=== PATIENT | male | born 2005 | race Hispanic/Latino ===

== ENCOUNTER 2023-12-01 11:28 | Day surgery (SDC) | payer BC, SELFPAY ==
[2023-12-01] MEDS ORDERED: Ondansetron PF 4 MG/2 ML Vial IVP PRN (14:06)
[2023-12-01] MEDS ORDERED: Dextrose 50% Abboject 50 ML SYRINGE SLOW IVP PRN (14:06)
[2023-12-01] MEDS ORDERED: Dextrose 5% in Water 1,000 ML IV PRN (14:06)
[2023-12-01] MEDS ORDERED: Promethazine HCl 25 MG/ML VIAL IM PRN (14:06)
[2023-12-01] MEDS ORDERED: Glucagon 1 MG/ML KIT IM PRN (14:06)
[2023-12-01] MEDS ORDERED: Lactated Ringer's 1,000 ML IV SCH (14:15)
[2023-12-01] MEDS ORDERED: Piperacillin/Tazobactam 3.375 GM in Sodium Chloride 0.9% 100 ML IVPB SCH ×3 (14:15→23:59)
[2023-12-01] MEDS ORDERED: EPINEPHrine 1 MG/ML VIAL ONE (16:06)
[2023-12-01] MEDS ORDERED: Bupivacaine 0.25% HCL 30 ML VIAL ONE (16:06)
[2023-12-01] MEDS ORDERED: PROPOFOL 40 ML ONE (16:20)
[2023-12-01] MEDS ORDERED: SUCCINYLCHOLINE/SOD CL,ISO/PF 200 MG/10 ML SYRINGE FS ONE (16:20)
[2023-12-01] MEDS ORDERED: Dexmedetomidine 200 MCG/2 ML VIAL ONE (16:20)
[2023-12-01] MEDS ORDERED: Rocuronium Bromide 10 MG/ML (10ML VIAL) ONE (16:20)
[2023-12-01] MEDS ORDERED: fentaNYL 50 mcg/mL 1 mL Vial ONE ×3 (16:20→17:59)
[2023-12-01] MEDS ORDERED: Lidocaine 1% PF 5 ML VIAL ONE (16:20)
[2023-12-01] MEDS ORDERED: SUGAMMADEX SODIUM 200 MG/2 ML VIAL ONE (16:37)
[2023-12-01] MEDS ORDERED: PHENYLEPHRINE-NS 100 MCG/ML 10 ML SYRINGE ONE (17:04)
[2023-12-01] MEDS ORDERED: Dexamethasone 4 mg/ml Vial ONE (17:05)
[2023-12-01] MEDS ORDERED: Ketorolac Tromethamine 30 MG (1 mL) VIAL ONE (17:05)
[2023-12-01] MEDS ORDERED: Ondansetron PF 4 MG/2 ML Vial ONE (17:05)
[2023-12-01] MEDS ORDERED: ePHEDrine Sulfate 50 MG/10 ML VIAL ONE (17:10)
[2023-12-01] MEDS ORDERED: Ketorolac Tromethamine 30 MG (1 mL) VIAL IVP SCH (18:00)
[2023-12-01] MEDS ORDERED: HYDROcodone/Acetaminophen 5/325 mg Tablet PO PRN (18:03)
[2023-12-01] MEDS ORDERED: Famotidine 20 MG TAB PO SCH (21:00)
== END 2023-12-01 19:00 | disposition home or self-care (01) ==
LOC: SDC/OP 11:28 → OBSVTOIN 11:58 → INTOOBSV 11:58 → 2NO 11:58 → UNDOADMOB 11:58 → SDC/OP 19:00
PROVIDERS: ATTEND Surgery
PROC: 0DTJ4ZZ Resection of Appendix, Percutaneous Endoscopic Approach (ICD-10-PCS; principal; 2023-12-01)
DX: K35.80 Unspecified acute appendicitis (principal)
CPT/HCPCS: 88304; J0171; J0665; J1100; J1885; J2405; J2704; J3010